=== PATIENT | male | born 1975 | race American Indian/Alaskan Native ===

== ENCOUNTER 2019-09-09 22:57 | Inpatient (IN) | payer OTHER ==
[2019-09-10] MEDS ORDERED: ONDANSETRON 4 MG/2 ML INJ ONE (02:43)
[2019-09-10] MEDS ORDERED: SODIUM CHLORIDE 0.9% 1000 ML 1,000 ML IV ONE (04:05)
[2019-09-10] MEDS ORDERED: ACETAMINOPHEN 500 MG TAB PO ONE (04:05)
[2019-09-10] MEDS ORDERED: dexAMETHasone 20 MG/5 ML VIAL IV ONE (04:06)
--- NOTE | 2019-09-10 04:18 | XRay Report ---
CHEST 2 VIEWS INDICATION / CLINICAL INFORMATION: fever. COMPARISON: None available. FINDINGS: SUPPORT DEVICES: None. HEART / MEDIASTINUM: No significant abnormality. LUNGS / PLEURA: Moderate bilateral streaky parenchymal disease No pneumothorax. ADDITIONAL FINDINGS: No significant additional findings. IMPRESSION: 1. Probable bilateral COVID bronchopneumonia Signer Name: Tahir Massey MD Signed: 09/10/2019 4:14 AM Workstation Name: [email or web address]
[2019-09-10 04:55] LABS: Basophils % (Auto) 0.5 % (0.0-1.8); Eosinophils % (Auto) 0.1 % (0.0-4.3); Hematocrit 47.8 % (35.5-45.6); Hemoglobin 16.1 gm/dl (11.8-15.2); Lymphocytes # (Auto) 2.7 K/mm3 (1.2-5.4); Lymphocytes % (Auto) 42.4 % (13.4-35.0); Mean Corpuscular HGB Conc 34 % (32-34); Mean Corpuscular Volume 96 fl (84-94); Monocytes # (Auto) 0.3 K/mm3 (0.0-0.8); Monocytes % (Auto) 5.2 % (0.0-7.3); Platelet Count 214 K/mm3 (140-440); Red Blood Count 4.98 M/mm3 (3.65-5.03); Red Cell Distribution Width 13.7 % (13.2-15.2)
[2019-09-10 05:03] LABS: Alanine Aminotransferase 80 units/L (7-56); Albumin 4.2 g/dL (3.9-5); BUN/Creatinine Ratio 18; Blood Urea Nitrogen 14 mg/dL (9-20); Calcium 8.6 mg/dL (8.4-10.2); Hemolysis Index 102
[2019-09-10] MEDS ORDERED: IPRATROPIUM/ALBUTEROL SULFATE 3 ML AMPUL.NEB IH ONE (05:38)
[2019-09-10] MEDS ORDERED: cefTRIAXone/NS 1 GM/50 ML 1 GM/50 ML BAG IV ONE ×2 (05:39→10:00)
[2019-09-10] MEDS ORDERED: AZITHROMYCIN 500 MG in SODIUM CHLORIDE 0.9% 250ML 250 ML IV ONE (06:00)
--- NOTE | 2019-09-10 07:51 | Emergency Department Report ---
ED General Adult HPI - General Chief complaint: Fever Stated complaint: FEVER,HEADACHE,CHILLS Source: patient Mode of arrival: Ambulatory Limitations: No Limitations - History of Present Illness Initial comments: Patient is a 44-year-old male with no past medical history who presents to the ED with complaint of acute onset persistent shortness of breath, persistent dry cough, diffuse body aches and pains, generalized weakness, fatigue, diaphoresis and subjective fever and chills lack of appetite for the last 1 week, worse in the last 2 days. Patient states that he has been taking [id number] Tylenol for fever but that the fever has been persistent and intermittent. Patient states that no one else at home is had similar symptoms. Patient denies dizziness, syncope, chest pain, abdominal pain, nausea, vomiting, sore throat, syncope, dysuria, testicular pain, hematuria or change in vision and palpitations. MD Complaint: dyspnea, cough, fever and chills; weakness -: Sudden, week(s) Location: chest Radiation: non-radiation Severity scale (0 -10): 6 Quality: aching, sharp Consistency: constant Improves with: none Worsens with: none Associated Symptoms: denies other symptoms, cough, diaphoresis, fever/chills, headaches, loss of appetite, malaise, shortness of breath. denies: confusion, chest pain, nausea/vomiting, rash, seizure, syncope, weakness, other Treatments Prior to Arrival: none - Related Data Allergies Allergy/AdvReac Type Severity Reaction Status Date / Time No Known Allergies Allergy Verified 09/09/19 23:49 ED Review of Systems ROS: Stated complaint: FEVER,HEADACHE,CHILLS Other details as noted in HPI Constitutional: chills, fever, malaise, weakness Eyes: denies: eye pain, eye discharge, vision change ENT: congestion. denies: ear pain, throat pain Respiratory: cough, shortness of breath, wheezing Cardiovascular: denies: chest pain, palpitations Endocrine: no symptoms reported Gastrointestinal: denies: abdominal pain, nausea, diarrhea Genitourinary: denies: urgency, dysuria Musculoskeletal: arthralgia, myalgia. denies: back pain, joint swelling Skin: denies: rash, lesions Neurological: headache. denies: weakness, paresthesias Psychiatric: denies: anxiety, depression Hematological/Lymphatic: denies: easy bleeding, easy bruising ED Past Medical Hx - Past Medical History Previous Medical History?: No - Surgical History Past Surgical History?: No ED Physical Exam - General Limitations: No Limitations General appearance: alert, in no apparent distress - Head Head exam: Present: atraumatic, normocephalic, normal inspection - Eye Eye exam: Present: normal appearance, PERRL, EOMI - ENT ENT exam: Present: normal orophraynx, mucous membranes moist, TM's normal bilaterally, normal external ear exam, other (Grossly congested nasal passages) - Neck Neck exam: Present: normal inspection, full ROM - Respiratory Respiratory exam: Present: wheezes (Mild diffuse coarse wheezes throughout). Absent: respiratory distress, rales, rhonchi, chest wall tenderness, decreased breath sounds - Cardiovascular Cardiovascular Exam: Present: normal rhythm, tachycardia, normal heart sounds. Absent: systolic murmur, diastolic murmur, rubs, gallop - GI/Abdominal GI/Abdominal exam: Present: soft, normal bowel sounds. Absent: distended, tenderness, guarding, hyperactive bowel sounds, hypoactive bowel sounds, organomegaly - Extremities Exam Extremities exam: Present: normal inspection, full ROM, normal capillary refill - Back Exam Back exam: Present: normal inspection, full ROM. Absent: tenderness, CVA tenderness (R), muscle spasm, paraspinal tenderness, vertebral tenderness - Neurological Exam Neurological exam: Present: alert, oriented X3, CN II-XII intact, normal gait, reflexes normal - Psychiatric Psychiatric exam: Present: normal affect, normal mood - Skin Skin exam: Present: warm, dry, intact, normal color. Absent: rash ED Course Vital Signs 09/09/19 23:47 Temperature 98.3 F Pulse Rate 109 H Respiratory 16 Rate Blood Pressure 128/79 O2 Sat by Pulse 95 Oximetry ED Medical Decision Making - Lab Data Result diagrams: 09/10/19 04:24 09/10/19 04:24 - Radiology Data Radiology results: report reviewed, image reviewed Findings [facility] [address] [place] [address] XRay Report Signed Patient: ROCÍO CARBAJAL R#: [id number] : 1975 Acct:[id number] Age/Sex: 44 / M ADM Date: 09/09/19 Loc: ED Attending Dr: Ordering Physician: MARTY NAYLOR Date of Service: 09/10/19 Procedure(s): XR chest routine 2V Accession Number(s): [id number] cc: MARTY NAYLOR Fluoro Time In Minutes: CHEST 2 VIEWS INDICATION / CLINICAL INFORMATION: fever. COMPARISON: None available. FINDINGS: SUPPORT DEVICES: None. HEART / MEDIASTINUM: No significant abnormality. LUNGS / PLEURA: Moderate bilateral streaky parenchymal disease No pneumothorax. ADDITIONAL FINDINGS: No significant additional findings. IMPRESSION: 1. Probable bilateral COVID bronchopneumonia Signer Name: Tahir Massey MD Signed: 09/10/2019 4:14 AM Workstation Name: [id number] Transcribed By: TL Dictated By: Tahir Massey MD Electronically Authenticated By: Tahir Massey MD Signed Date/Time: 09/10/19413 DD/ 2 TD/TT: - Medical Decision Making This is a 44-year-old male with no past medical history who presents to the ED with complaint of acute onset persistent shortness of breath, persistent dry cough, diffuse body aches and pains, generalized weakness, fatigue, diaphoresis and subjective fever and chills lack of appetite for the last 1 week, worse in the last 2 days. Patient states that he has been taking [id number] Tylenol for fever but that the fever has been persistent and intermittent. Patient states that no one else at home is had similar symptoms. In the ED, patient is alert and oriented x3 and is not in distress but tachycardic in triage and slightly hypoxic when ambulating in the ED with oxygen saturation of 92% in room air. Chest x-ray showed moderate bilateral streaky parenchymal disease No pneumothorax. The initial lab test results showed AST of 72, ALT of 80 and hyperglycemia of 156 mg/dL. The rest of the lab test results were unremarkable. When ambulated in the ED, patient's oxygen saturation dropped to 92% on room air. Patient's case was discussed with the ED attending physician Dr. Leal who agreed with the plan of care to admit the patient to the hospital with hospitalist physician. The COVID-19 order set was activated and the patient treated accordingly with Decadron, DuoNeb, Tylenol, normal saline IV bolus and started on empiric antibiotics Rocephin 1 g IV x1 and azithromycin 500 mg IV x1. Patient's case was discussed with the hospitalist physician on-call Dr. Mo who took the admission to past hour to the day shift hospitalist physician at shift change at 0700 hrs. - Differential Diagnosis Pneumonia; Covid-19; Hypoxia; CAD; Bronchitis; PE Critical care attestation.: If time is entered above; I have spent that time in minutes in the direct care of this critically ill patient, excluding procedure time. ED Disposition Clinical Impression: Shortness of breath, Hypoxia, Suspected COVID-19 virus infection Pneumonia of both lower lobes Qualifiers: Pneumonia type: due to unspecified organism Qualified Code(s): J18.9 - Pneumonia, unspecified organism Disposition: - OP ADMIT IP TO THIS HOSP Is pt being admited?: Yes Does the pt Need Aspirin: Yes Condition: Stable Instructions: Bacterial Pneumonia (ED) Referrals: PRIMARY CARE, [Primary Care Provider] - 3-5 Days Time of Disposition: 06:50
[2019-09-10] MEDS ORDERED: ASPIRIN 81 MG TAB CHEW PO ONE (07:55)
[2019-09-10] MEDS ORDERED: ONDANSETRON 4 MG/2 ML INJ IV PRN (09:01)
[2019-09-10] MEDS ORDERED: AZITHROMYCIN 500 MG in SODIUM CHLORIDE 0.9% 250ML 250 ML IV SCH (10:00)
[2019-09-10] MEDS ORDERED: AZITHROMYCIN 250 MG TAB PO SCH (10:00)
--- NOTE | 2019-09-10 11:11 | History and Physical Report ---
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 He states the fever is mostly only in the morning. He is not in any acute distress. Chest x-ray revealed bilateral streaky parenchymal infiltrates . He was also h ypoxic with O2 sat on room air 88%. Patient is being admitted for suspected COVID 19 pneumonia Past History Past Medical History: No medical history Medications and Allergies Allergies Allergy/AdvReac Type Severity Reaction Status Date / Time No Known Allergies Allergy Verified 09/09/19 23:49 Active Meds: Active Medications Acetaminophen (Tylenol) 650 mg PO Q4H PRN PRN Reason: Pain MILD(1-3)/Fever >100.5/BOBBY Azithromycin (Zithromax) 500 mg PO QDAY DONN Dexamethasone (Decadron) 6 mg PO DAILY [facility] Stop: 09/20/19 10:01 Sodium Chloride (Nacl 0.9% 1000 Ml) 1,000 mls @ 75 mls/hr IV DIRECT DONN Ceftriaxone Sodium (Rocephin/Ns 2 Gm/100 Ml) 2 gm in 100 mls @ 200 mls/hr IV Q 24HR DONN; Protocol Ondansetron HCl (Zofran) 4 mg IV Q8H PRN PRN Reason: Nausea And Vomiting Sodium Chloride (Sodium Chloride Flush Syringe 10 Ml) 10 ml IV BID [facility] Sodium Chloride (Sodium Chloride Flush Syringe 10 Ml) 10 ml IV PRN PRN PRN Reason: LINE FLUSH Review of Systems Constitutional: fever, fatigue, no weight loss, no chills Ears, nose, mouth and throat: no ear pain, no nasal congestion, no sore throat, no headache, no vertigo Cardiovascular: shortness of breath, dyspnea on exertion, no chest pain, no palpitations, no syncope Respiratory: cough, shortness of breath, no hemoptysis Gastrointestinal: no abdominal pain, no nausea, no vomiting, no diarrhea, no melena Genitourinary Male: no dysuria Rectal: no pain Musculoskeletal: no neck stiffness, no neck pain Integumentary: no rash Neurological: no head injury, no vertigo Psychiatric: no anxiety, no depression Exam - Constitutional Vitals: Temp Pulse Resp BP Pulse Ox 98.2 F 84 18 133/81 97 09/10/19 09:42 09/10/19 09:42 09/10/19 09:42 09/10/19 10:00 09/10/19 10:00 General appearance: Present: no acute distress, well-nourished - EENT Eyes: Present: PERRL, EOM intact ENT: hearing intact, clear oral mucosa - Neck Neck: Present: supple, normal ROM - Respiratory Respiratory effort: normal Respiratory: bilateral: CTA - Cardiovascular Rhythm: regular Heart Sounds: Present: S1 & S2 - Extremities Extremities: No edema - Abdominal General gastrointestinal: Present: soft, non-tender. Absent: hepatomegaly, spl enomegaly Male genitourinary: Present: deferred - Rectal Rectal Exam: deferred - Integumentary Integumentary: Present: clear - Musculoskeletal Musculoskeletal: strength equal bilaterally - Psychiatric Psychiatric: appropriate mood/affect - Neurologic Neurologic: no focal deficits Results - Labs CBC & Chem 7: 09/10/19 04:24 09/10/19 04:24 Labs: Abnormal lab results 09/10/19 09/10/19 Range/Units 04:24 04:24 Hgb 16.1 H (11.8-15.2) gm/dl Hct 47.8 H (35.5-45.6) % MCV 96 H (84-94) fl Lymph % (Auto) 42.4 H (13.4-35.0) % Glucose 156 H (75-100) mg/dL AST 72 H (5-40) units/L ALT 80 H (7-56) units/L Total Protein 8.3 H (6.3-8.2) g/dL Assessment and Plan - Patient Problems (1) Pneumonia of both lower lobes Current Visit: Yes Status: Acute Qualifiers: Pneumonia type: due to unspecified organism Qualified Code(s): J18.9 - Pneumonia, unspecified organism Plan to address problem: Patient is being admitted for bilateral lung infiltrates and hypoxia with suspected infection Pneumonia pathway initiated Continue IV antibiotics with Rocephin and azithromycin COVID-19 tests results pending (2) Hyperglycemia Current Visit: Yes Status: Acute Plan to address problem: Patient denies history of diabetes Check A1c (3) Elevated LFTs Current Visit: Yes Status: Acute Plan to address problem: Patient denies alcohol abuse Likely inflammatory markers secondary to COVID-19 Monitor LFTs His abdomen is benign (4) Hypoxia Current Visit: Yes Status: Acute Plan to address problem: Secondary to pneumonia Continue oxygen via nasal cannula at 2 L Likely satting 95% (5) Suspected COVID-19 virus infection Current Visit: Yes Status: Acute Plan to address problem: COVID-19 test is pending Inflammatory markers including d-dimer, LDH, C-reactive protein and ferritin ordered
[2019-09-10 13:10] LABS: C-Reactive Protein 5.3 mg/dL (0.00-1.30)
[2019-09-10] MEDS ORDERED: REMDESIVIR 200 MG in SODIUM CHLORIDE 0.9% 250ML 250 ML IV ONE (15:48)
[2019-09-10] MEDS: SODIUM CHLORIDE 0.9% 50 ML IV SCH (20:48)
[2019-09-11] MEDS: ACETAMINOPHEN 325 MG TAB PO PRN (05:05)
[2019-09-11 06:30] LABS: Alanine Aminotransferase 64 units/L (7-56); Albumin 3.9 g/dL (3.9-5); BUN/Creatinine Ratio 18; Blood Urea Nitrogen 14 mg/dL (9-20); Calcium 8.9 mg/dL (8.4-10.2); Hemolysis Index 6
[2019-09-11] MEDS: SODIUM CHLORIDE 0.9% 1000 ML 1,000 ML IV SCH ×2 (07:29→22:24)
[2019-09-11] MEDS ORDERED: cefTRIAXone/NS 2 GM/100 ML 2 GM/100 ML BAG IV SCH (10:00)
[2019-09-11] MEDS: DEXAMETHASONE 4 MG TAB PO SCH (10:03)
--- NOTE | 2019-09-11 10:27 | Progress Note ---
Assessment and Plan - Patient Problems (1) Pneumonia of both lower lobes Current Visit: Yes Status: Acute Qualifiers: Pneumonia type: due to unspecified organism Qualified Code(s): J18.9 - Pneumonia, unspecified organism (2) Hyperglycemia Current Visit: Yes Status: Acute (3) Elevated LFTs Current Visit: Yes Status: Acute (4) Hypoxia Current Visit: Yes Status: Acute (5) Suspected COVID-19 virus infection Current Visit: Yes Status: Acute Subjective Date of service: 09/11/19 Interval history: Assessment and Plan - Patient Problems (1) Pneumonia of both lower lobes 2/2 covid 19 infection Current Visit: Yes Status: Acute Qualifiers: Pneumonia type: due to unspecified organism Qualified Code(s): J18.9 - Pneu monia, unspecified organism Plan to address problem: Patient is being admitted for bilateral lung infiltrates and hypoxia with suspected infection COVID 19 test is positive Procalcitonin is in the normal range We will discontinue IV antibiotics Started on Decadron and remdesivir Feels better Still has dry cough and feels short of breath with effort. Denies fever Lab results reviewed (2) Hyperglycemia Current Visit: Yes Status: Acute Plan to address problem: Patient denies history of diabetes A1c 7.4 Initiate insulin sliding scale coverage (3) Elevated LFTs Current Visit: Yes Status: Acute Plan to address problem: Patient denies alcohol abuse Likely inflammatory markers secondary to COVID-19 Improving Monitor LFTs intermittently His abdomen is benign (4) Hypoxia Current Visit: Yes Status: Acute Plan to address problem: Secondary to pneumonia Continue oxygen via nasal cannula at 2 L Oxygen saturation 95% but last oxygen saturation this morning dropped to 89 Discussed with RN if Repeat O2 sat is less than 93% we will increase the oxygen to 4 L (5) Suspected COVID-19 virus infection Current Visit: Yes Status: Acute Plan to address problem: COVID-19 test is Inflammatory markers including d-dimer, LDH, C-reactive protein and ferritin reviewed HPI: Patient is alert and oriented and offers no specific complaints except mild dry cough and shortness of breath with effort He states the fevers have improved since he came here 09/10 Doing well Feels better and has mild shortness of breath with effort Also complains of mild dry cough Lab results reviewed Medications adjusted Objective - Constitutional Vitals: Vital Signs - 12hr 09/10/19 09/10/19 09/11/19 23:00 23:53 00:00 Temperature 98.4 F Pulse Rate 105 H Respiratory 16 Rate Blood Pressure 159/85 159/85 Blood Pressure 112/76 [Right] O2 Sat by Pulse 94 95 95 Oximetry 09/11/19 09/11/19 09/11/19 01:00 02:00 03:00 Temperature 99.1 F Pulse Rate 99 H Respiratory 18 Rate Blood Pressure 142/75 158/80 175/126 Blood Pressure 152/78 [Right] O2 Sat by Pulse 93 95 93 Oximetry 09/11/19 09/11/19 03:10 05:55 Temperature 97.8 F Pulse Rate 91 H Respiratory 20 Rate Blood Pressure 175/126 144/94 Blood Pressure [Right] O2 Sat by Pulse 93 89 Oximetry General appearance: Present: no acute distress - EENT Eyes: PERRL, EOM intact ENT: hearing intact, clear oral mucosa - Neck Neck: supple, normal ROM - Respiratory Respiratory effort: normal Respiratory: bilateral: CTA, negative: rales, rhonchi - Cardiovascular Rhythm: regular Heart Sounds: Present: S1 & S2 Extremities: No edema - Gastrointestinal General gastrointestinal: Present: soft, non-tender Rectal Exam: deferred - Genitourinary Male genitourinary: deferred - Integumentary Integumentary: clear - Musculoskeletal Musculoskeletal: strength equal bilaterally - Neurologic Neurologic: no focal deficits - Psychiatric Psychiatric: appropriate mood/affect - Labs CBC & Chem 7: 09/10/19 04:24 09/11/19 05:16 Labs: Abnormal lab results 09/10/19 09/10/19 09/10/19 Range/Units 09:00 09:00 09:00 D-Dimer 241.42 H (0-234) ng/mlDDU Glucose (75-100) mg/dL Hemoglobin A1c (4-6) % Ferritin 822.6 H (13.0-400.0) ng/mL AST (5-40) units/L ALT (7-56) units/L Lactate Dehydrogenase 298 H (91-180) units/L C-Reactive Protein 5.30 H (0.00-1.30) mg/dL Coronavirus (PCR) (Negative) 09/10/19 09/11/19 09/11/19 Range/Units Unknown 05:16 07:48 D-Dimer (0-234) ng/mlDDU Glucose 219 H (75-100) mg/dL Hemoglobin A1c 7.4 H (4-6) % Ferritin (13.0-400.0) ng/mL AST 41 H (5-40) units/L ALT 64 H (7-56) units/L Lactate Dehydrogenase (91-180) units/L C-Reactive Protein (0.00-1.30) mg/dL Coronavirus (PCR) Positive A (Negative)
[2019-09-11] MEDS: INSULIN LISPRO 100 UNIT/ML SUB-Q SCH ×3 (11:30→22:23)
[2019-09-11] MEDS: REMDESIVIR 100 MG in SODIUM CHLORIDE 0.9% 250ML 250 ML IV SCH (22:22)
[2019-09-11] MEDS: SODIUM CHLORIDE 0.9% 50 ML IV SCH (22:22)
[2019-09-12] MEDS: SODIUM CHLORIDE 0.9% 1000 ML 1,000 ML IV SCH (04:23)
[2019-09-12] MEDS: INSULIN LISPRO 100 UNIT/ML SUB-Q SCH ×4 (09:04→22:56)
[2019-09-12] MEDS: DEXAMETHASONE 4 MG TAB PO SCH (09:05)
--- NOTE | 2019-09-12 09:43 | Progress Note ---
Assessment and Plan - Patient Problems (1) Pneumonia of both lower lobes Current Visit: Yes Status: Acute Qualifiers: Pneumonia type: due to unspecified organism Qualified Code(s): J18.9 - Pneumonia, unspecified organism (2) Hyperglycemia Current Visit: Yes Status: Acute (3) Elevated LFTs Current Visit: Yes Status: Acute (4) Hypoxia Current Visit: Yes Status: Acute (5) Suspected COVID-19 virus infection Current Visit: Yes Status: Acute Subjective Date of service: 09/12/19 Interval history: Assessment and Plan - Patient Problems (1) Pneumonia of both lower lobes 2/2 covid 19 infection Current Visit: Yes Status: Acute Qualifiers: Pneumonia type: due to unspecified organism Qualified Code(s): J18.9 - Pneu monia, unspecified organism Plan to address problem: Patient is being admitted for bilateral lung infiltrates and hypoxia 2/2 covid 19 infection COVID 19 test is positive Procalcitonin is in the normal range IV antibiotics stopped cont. Decadron day 3 Continue remdesivir -day 2, stop date 09/14 Feels better Still has dry cough and feels short of breath with effort. Denies fever Lab results reviewed All inflammatory markers are improving LFTs are close to normal LDH down to 210, ferritin down to 660 and d-dimer is (2) Hyperglycemia Current Visit: Yes Status: Acute Plan to address problem: Patient denies history of diabetes A1c 7.4 Continue insulin sliding scale coverage (3) Elevated LFTs Current Visit: Yes Status: Acute Plan to address problem: Patient denies alcohol abuse Likely inflammatory markers secondary to COVID-19 Improving-now close to normal No need for further follow-up of LFTs (4) Hypoxia Current Visit: Yes Status: Acute Plan to address problem: Secondary to pneumonia Patient is on room air today Oxygen saturation 95% Discussed with RN (5) COVID-19 virus infection Current Visit: Yes Status: Acute Plan to address problem: COVID-19 test is positive Inflammatory markers including d-dimer, LDH, C-reactive protein and ferritin reviewed HPI: Patient is alert and oriented and offers no specific complaints except mild dry cough and shortness of breath with effort He states the fevers have improved since he came here 09/10 Doing well Feels better and has mild shortness of breath with effort Also complains of mild dry cough Lab results reviewed Medications adjusted 09/11 Doing well Denies shortness of breath Still has dry cough Denies fever or chills Lab results reviewed Objective - Constitutional Vitals: Vital Signs - 12hr 09/12/19 09/12/19 02:00 03:41 Temperature 97.8 F Pulse Rate 68 Pulse Rate [ 74 Right Brachial] Respiratory 18 18 Rate Blood Pressure 132/81 O2 Sat by Pulse 96 97 Oximetry General appearance: Present: no acute distress, mild distress - EENT Eyes: PERRL, EOM intact ENT: hearing intact, clear oral mucosa - Neck Neck: supple, normal ROM - Respiratory Respiratory effort: normal Respiratory: bilateral: CTA - Cardiovascular Rhythm: regular Heart Sounds: Present: S1 & S2 Extremities: No edema - Gastrointestinal General gastrointestinal: Present: soft, non-tender - Integumentary Integumentary: clear - Musculoskeletal Musculoskeletal: strength equal bilaterally - Labs CBC & Chem 7: 09/10/19 04:24 09/11/19 05:16 Labs: Abnormal lab results 09/11/19 09/11/19 09/12/19 Range/Units 17:25 22:29 05:55 POC Glucose 278 H 266 H (70-105) Ferritin 661.6 H (13.0-400.0) ng/mL Lactate Dehydrogenase (91-180) units/L 09/12/19 09/12/19 Range/Units 05:55 09:05 POC Glucose 202 H (70-105) Ferritin (13.0-400.0) ng/mL Lactate Dehydrogenase 210 H (91-180) units/L
[2019-09-12] MEDS: REMDESIVIR 100 MG in SODIUM CHLORIDE 0.9% 250ML 250 ML IV SCH (21:28)
[2019-09-12] MEDS: SODIUM CHLORIDE 0.9% 50 ML IV SCH (22:03)
[2019-09-13] MEDS: SODIUM CHLORIDE 0.9% 1000 ML 1,000 ML IV SCH ×2 (06:19→20:02)
--- NOTE | 2019-09-13 07:39 | Progress Note ---
Assessment and Plan Assessment and plan: --COVID-19 bilateral pneumonia Current Visit: Yes Status: Acute COVID 19 test is positive Procalcitonin is in the normal range,IV antibiotics stopped cont. Decadron day 5 and remdesivir -day 4 Has mild dry cough and feels short of breath with effort. 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 --DVT prophylaxis: Lovenox Monitor closely and adjust management as needed Plan of care reviewed with the patient and his nurse 09/10:Doing well, mild dry cough 09/11:Denies shortness of breath, has dry cough On steroid and Remdesivir 09/13/19: Oxygen evaluation O2 sats more than 95% No indication for home oxygen at this point Possible discharge in 1 to 2 days if stable History Interval history: COVID positive patient ; I have seen and examined the patient at bedside this morning Isolation precautions, PPE protocols observed Patient feels slightly better, afebrile Vital signs reviewed Hospitalist Physical - Constitutional Vitals: Temp Pulse Resp BP Pulse Ox 97.8 F 58 L 20 131/81 95 09/13/19 04:00 09/13/19 04:00 09/13/19 04:00 09/13/19 04:00 09/13/19 04:00 General appearance: Present: no acute distress, mild distress, obese - EENT Eyes: Present: PERRL, EOM intact - Neck Neck: Present: supple, normal ROM - Respiratory Respiratory effort: normal Respiratory: bilateral: diminished, rhonchi, negative: rales, wheezing - Cardiovascular Rhythm: regular Heart Sounds: Present: S1 & S2 - Extremities Extremities: no ischemia, No edema - Abdominal General gastrointestinal: soft, non-tender, non-distended, normal bowel sounds - Integumentary Integumentary: Present: clear, warm - Psychiatric Psychiatric: appropriate mood/affect, cooperative - Neurologic Neurologic: CNII-XII intact, moves all extremities Results - Labs CBC & Chem 7: 09/10/19 04:24 09/11/19 05:16 Labs: Laboratory Last Values WBC 6.4 K/mm3 (4.5-11.0) 09/10/19 04:24 RBC 4.98 M/mm3 (3.65-5.03) 09/10/19 04:24 Hgb 16.1 gm/dl (11.8-15.2) H 09/10/19 04:24 Hct 47.8 % (35.5-45.6) H 09/10/19 04:24 MCV 96 fl (84-94) H 09/10/19 04:24 MCH 32 pg (28-32) 09/10/19 04:24 MCHC 34 % (32-34) 09/10/19 04:24 RDW 13.7 % (13.2-15.2) 09/10/19 04:24 Plt Count 214 K/mm3 (140-440) 09/10/19 04:24 Lymph % (Auto) 42.4 % (13.4-35.0) H 09/10/19 04:24 [place] % (Auto) 5.2 % (0.0-7.3) 09/10/19 04:24 Eos % (Auto) 0.1 % (0.0-4.3) 09/10/19 04:24 Baso % (Auto) 0.5 % (0.0-1.8) 09/10/19 04:24 Lymph # 2.7 K/mm3 (1.2-5.4) 09/10/19 04:24 [place] # 0.3 K/mm3 (0.0-0.8) 09/10/19 04:24 Eos # 0.0 K/mm3 (0.0-0.4) 09/10/19 04:24 Baso # 0.0 K/mm3 (0.0-0.1) 09/10/19 04:24 Seg Neutrophils % 51.8 % (40.0-70.0) 09/10/19 04:24 Seg Neutrophils # 3.3 K/mm3 (1.8-7.7) 09/10/19 04:24 D-Dimer 182.03 ng/mlDDU (0-234) 09/12/19 05:55 Sodium 141 mmol/L (137-145) 09/11/19 05:16 Potassium 4.1 mmol/L (3.6-5.0) 09/11/19 05:16 Chloride 104.6 mmol/L (98-107) 09/11/19 05:16 Carbon Dioxide 22 mmol/L (22-30) 09/11/19 05:16 Anion Gap 19 mmol/L 09/11/19 05:16 BUN 14 mg/dL (9-20) 09/11/19 05:16 Creatinine 0.8 mg/dL (0.8-1.5) 09/11/19 05:16 Estimated GFR > 60 ml/min 09/11/19 05:16 BUN/Creatinine Ratio 18 % 09/11/19 05:16 Glucose 219 mg/dL (75-100) H 09/11/19 05:16 POC Glucose 261 (70-105) H 09/12/19 22:49 Hemoglobin A1c 7.4 % (4-6) H 09/11/19 07:48 Calcium 8.9 mg/dL (8.4-10.2) 09/11/19 05:16 Ferritin 661.6 ng/mL (13.0-400.0) H 09/12/19 05:55 Total Bilirubin 0.50 mg/dL (0.1-1.2) 09/11/19 05:16 AST 41 units/L (5-40) H 09/11/19 05:16 ALT 64 units/L (7-56) H 09/11/19 05:16 Alkaline Phosphatase 98 units/L (35-129) 09/11/19 05:16 Lactate Dehydrogenase 210 units/L (91-180) H 09/12/19 05:55 C-Reactive Protein 5.30 mg/dL (0.00-1.30) H 09/10/19 09:00 Total Protein 7.9 g/dL (6.3-8.2) 09/11/19 05:16 Albumin 3.9 g/dL (3.9-5) 09/11/19 05:16 Albumin/Globulin Ratio 1.0 % 09/11/19 05:16 Procalcitonin 0.23 ng/mL (<0.15) 09/10/19 07:10 Coronavirus (PCR) Positive (Negative) A 09/10/19 Unknown Microbiology: Microbiology 09/10/19 07:10 Peripheral/Venous Blood Culture - Preliminary NO GROWTH AFTER 48 HOURS 09/10/19 07:10 Peripheral/Venous Blood Culture - Preliminary NO GROWTH AFTER 48 HOURS Duggan/IV: Voiding Method Urinal IV Catheter Type [Right Peripheral IV Antecubital] Active Medications - Current Medications Current Medications: Generic Name Dose Route Start Last Admin Trade Name Freq PRN Reason Stop Dose Admin Acetaminophen 650 mg 09/10/19 09:01 09/11/19 05:05 Tylenol PO 650 mg Q4H PRN Administration Pain MILD(1-3)/Fever >100.5/BOBBY Dexamethasone 6 mg 09/11/19 10:00 09/12/19 09:05 Decadron PO 09/20/19 10:01 6 mg DAILY DONN Administration Sodium Chloride 1,000 mls @ 75 mls/hr 09/10/19 09:15 09/13/19 06:19 Nacl 0.9% 1000 Ml IV 75 mls/hr DIRECT DONN Administration REMDESIVIR 100 mg/ Sodium 250 mls @ 500 mls/hr 09/11/19 21:00 09/12/19 21:28 Chloride IV 09/14/19 21:29 500 mls/hr Q24HR@2100 DONN Administration Sodium Chloride 50 mls @ 200 mls/hr 09/10/19 16:00 09/12/19 22:03 Nacl 0.9% IV 09/14/19 21:14 200 mls/hr 2100 DONN Administration Insulin Human Lispro 0 unit 09/11/19 11:30 09/12/19 22:56 Humalog SUB-Q 3 unit ACHS DONN Administration Protocol Ondansetron HCl 4 mg 09/10/19 09:01 Zofran IV Q8H PRN Nausea And Vomiting Sodium Chloride 10 ml 09/10/19 10:00 09/12/19 22:04 Sodium Chloride Flush Syringe 10 Ml IV 10 ml BID DONN Administration Sodium Chloride 10 ml 09/10/19 09:01 Sodium Chloride Flush Syringe 10 Ml IV PRN PRN LINE FLUSH
[2019-09-13] MEDS: DEXAMETHASONE 4 MG TAB PO SCH (09:11)
[2019-09-13] MEDS: INSULIN LISPRO 100 UNIT/ML SUB-Q SCH ×4 (09:12→22:45)
[2019-09-13] MEDS: ACETAMINOPHEN 325 MG TAB PO PRN (21:00)
[2019-09-13] MEDS: REMDESIVIR 100 MG in SODIUM CHLORIDE 0.9% 250ML 250 ML IV SCH (21:50)
[2019-09-13] MEDS: SODIUM CHLORIDE 0.9% 50 ML IV SCH (22:58)
[2019-09-14] MEDS: INSULIN LISPRO 100 UNIT/ML SUB-Q SCH ×4 (08:45→23:04)
[2019-09-14] MEDS: DEXAMETHASONE 4 MG TAB PO SCH (09:29)
--- NOTE | 2019-09-14 11:53 | Progress Note ---
Assessment and Plan Assessment and plan: --COVID-19 bilateral pneumonia Current Visit: Yes Status: Acute COVID 19 test is positive Procalcitonin is in the normal range,IV antibiotics stopped cont. Decadron day 5 and remdesivir -day 4 Has mild dry cough and feels short of breath with effort. Inflammatory markers are improving LFTs are close to normal LDH down to 210, ferritin down to 660 and d-dimer is -- Hyperglycemia Current Visit: Yes Status: Acute Accu-Chek sliding scale coverage A1c 7.4, ADA diet Patient is on steroids, patient will check with PMD further evaluation management of hyperglycemia as outpatient -- Elevated LFTs Current Visit: Yes Status: Acute Trending down --Hypoxia; significantly improved Current Visit: Yes Status: Acute Secondary to pneumonia, received Remdesivir Room air and ambulatory O2 sats more than 95% Supportive care --DVT prophylaxis: Lovenox Monitor closely and adjust management as needed Plan of care reviewed with the patient and his nurse 09/10:Doing well, mild dry cough 09/11:Denies shortness of breath, has dry cough On steroid and Remdesivir 09/13/19: Oxygen evaluation O2 sats more than 95% No indication for home oxygen at this point 09/14/19; last dose of Remdesivir tonight, possible DC tomorrow O2 sats resting room air 96%, ambulatory room air 94%. No indication for home oxygen Possible discharge in 1 to 2 days if stable History Interval history: Patient feels slightly better, Resting room air and ambulatory room air O2 sats are more than 94% Patient is receiving rendicivir last dose tonight Patient denies chest pain or shortness of breath Vital signs reviewed Hospitalist Physical - Constitutional Vitals: Temp Pulse Resp BP Pulse Ox 97.7 F 57 L 18 138/91 96 09/14/19 05:17 09/14/19 05:17 09/14/19 07:30 09/14/19 05:17 09/14/19 05:17 General appearance: Present: no acute distress, mild distress, obese - EENT Eyes: Present: PERRL, EOM intact - Neck Neck: Present: supple, normal ROM - Respiratory Respiratory effort: normal Respiratory: bilateral: diminished, negative: rales, rhonchi, wheezing - Cardiovascular Rhythm: regular Heart Sounds: Present: S1 & S2 - Extremities Extremities: no ischemia, No edema - Abdominal General gastrointestinal: soft, non-tender, non-distended, normal bowel sounds - Integumentary Integumentary: Present: clear, warm - Psychiatric Psychiatric: appropriate mood/affect, cooperative - Neurologic Neurologic: CNII-XII intact, moves all extremities Results - Labs CBC & Chem 7: 09/10/19 04:24 09/11/19 05:16 Labs: Laboratory Last Values WBC 6.4 K/mm3 (4.5-11.0) 09/10/19 04:24 RBC 4.98 M/mm3 (3.65-5.03) 09/10/19 04:24 Hgb 16.1 gm/dl (11.8-15.2) H 09/10/19 04:24 Hct 47.8 % (35.5-45.6) H 09/10/19 04:24 MCV 96 fl (84-94) H 09/10/19 04:24 MCH 32 pg (28-32) 09/10/19 04:24 MCHC 34 % (32-34) 09/10/19 04:24 RDW 13.7 % (13.2-15.2) 09/10/19 04:24 Plt Count 214 K/mm3 (140-440) 09/10/19 04:24 Lymph % (Auto) 42.4 % (13.4-35.0) H 09/10/19 04:24 [place] % (Auto) 5.2 % (0.0-7.3) 09/10/19 04:24 Eos % (Auto) 0.1 % (0.0-4.3) 09/10/19 04:24 Baso % (Auto) 0.5 % (0.0-1.8) 09/10/19 04:24 Lymph # 2.7 K/mm3 (1.2-5.4) 09/10/19 04:24 [place] # 0.3 K/mm3 (0.0-0.8) 09/10/19 04:24 Eos # 0.0 K/mm3 (0.0-0.4) 09/10/19 04:24 Baso # 0.0 K/mm3 (0.0-0.1) 09/10/19 04:24 Seg Neutrophils % 51.8 % (40.0-70.0) 09/10/19 04:24 Seg Neutrophils # 3.3 K/mm3 (1.8-7.7) 09/10/19 04:24 D-Dimer 182.03 ng/mlDDU (0-234) 09/12/19 05:55 Sodium 141 mmol/L (137-145) 09/11/19 05:16 Potassium 4.1 mmol/L (3.6-5.0) 09/11/19 05:16 Chloride 104.6 mmol/L (98-107) 09/11/19 05:16 Carbon Dioxide 22 mmol/L (22-30) 09/11/19 05:16 Anion Gap 19 mmol/L 09/11/19 05:16 BUN 14 mg/dL (9-20) 09/11/19 05:16 Creatinine 0.8 mg/dL (0.8-1.5) 09/11/19 05:16 Estimated GFR > 60 ml/min 09/11/19 05:16 BUN/Creatinine Ratio 18 % 09/11/19 05:16 Glucose 219 mg/dL (75-100) H 09/11/19 05:16 POC Glucose 135 (70-105) H 09/14/19 07:56 Hemoglobin A1c 7.4 % (4-6) H 09/11/19 07:48 Calcium 8.9 mg/dL (8.4-10.2) 09/11/19 05:16 Ferritin 661.6 ng/mL (13.0-400.0) H 09/12/19 05:55 Total Bilirubin 0.50 mg/dL (0.1-1.2) 09/11/19 05:16 AST 41 units/L (5-40) H 09/11/19 05:16 ALT 64 units/L (7-56) H 09/11/19 05:16 Alkaline Phosphatase 98 units/L (35-129) 09/11/19 05:16 Lactate Dehydrogenase 210 units/L (91-180) H 09/12/19 05:55 C-Reactive Protein 5.30 mg/dL (0.00-1.30) H 09/10/19 09:00 Total Protein 7.9 g/dL (6.3-8.2) 09/11/19 05:16 Albumin 3.9 g/dL (3.9-5) 09/11/19 05:16 Albumin/Globulin Ratio 1.0 % 09/11/19 05:16 Procalcitonin 0.23 ng/mL (<0.15) 09/10/19 07:10 Coronavirus (PCR) Positive (Negative) A 09/10/19 Unknown Microbiology: Microbiology 09/10/19 07:10 Peripheral/Venous Blood Culture - Preliminary NO GROWTH AFTER 4 DAYS 09/10/19 07:10 Peripheral/Venous Blood Culture - Preliminary NO GROWTH AFTER 4 DAYS Duggan/IV: Voiding Method Toilet IV Catheter Type [Right Peripheral IV Antecubital] Active Medications - Current Medications Current Medications: Generic Name Dose Route Start Last Admin Trade Name Freq PRN Reason Stop Dose Admin Acetaminophen 650 mg 09/10/19 09:01 09/13/19 21:00 Tylenol PO 650 mg Q4H PRN Administration Pain MILD(1-3)/Fever >100.5/BOBBY Dexamethasone 6 mg 09/11/19 10:00 09/14/19 09:29 Decadron PO 09/20/19 10:01 6 mg DAILY DONN Administration Sodium Chloride 1,000 mls @ 75 mls/hr 09/10/19 09:15 09/13/19 20:02 Nacl 0.9% 1000 Ml IV 75 mls/hr DIRECT DONN Administration REMDESIVIR 100 mg/ Sodium 250 mls @ 500 mls/hr 09/11/19 21:00 09/13/19 21:50 Chloride IV 09/14/19 21:29 500 mls/hr Q24HR@2100 DONN Administration Sodium Chloride 50 mls @ 200 mls/hr 09/10/19 16:00 09/13/19 22:58 Nacl 0.9% IV 09/14/19 21:14 200 mls/hr 2100 DONN Administration Insulin Human Lispro 0 unit 09/11/19 11:30 09/14/19 08:45 Humalog SUB-Q Not Given ACHS DONN Protocol Ondansetron HCl 4 mg 09/10/19 09:01 Zofran IV Q8H PRN Nausea And Vomiting Sodium Chloride 10 ml 09/10/19 10:00 09/14/19 09:30 Sodium Chloride Flush Syringe 10 Ml IV 10 ml BID DONN Administration Sodium Chloride 10 ml 09/10/19 09:01 Sodium Chloride Flush Syringe 10 Ml IV PRN PRN LINE FLUSH
[2019-09-14] MEDS: SODIUM CHLORIDE 0.9% 1000 ML 1,000 ML IV SCH (13:28)
[2019-09-14] MEDS: REMDESIVIR 100 MG in SODIUM CHLORIDE 0.9% 250ML 250 ML IV SCH (21:35)
[2019-09-14] MEDS: SODIUM CHLORIDE 0.9% 50 ML IV SCH (23:00)
[2019-09-15] MEDS: SODIUM CHLORIDE 0.9% 1000 ML 1,000 ML IV SCH (05:10)
[2019-09-15] MEDS: INSULIN LISPRO 100 UNIT/ML SUB-Q SCH ×3 (08:02→17:06)
[2019-09-15] MEDS: DEXAMETHASONE 4 MG TAB PO SCH (09:28)
--- NOTE | 2019-09-15 14:43 | Discharge Summary ---
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 He states the fever is mostly only in the morning. He is not in any acute distress. Chest x-ray revealed bilateral streaky parenchymal infiltrates . He was also hypoxic with O2 sat on room air 88%. Patient is being admitted work-up was consistent with COVID 19 pneumonia, received empiric antibiotics initially, COVID-19 test was positive, inflammatory markers checked and closely monitored which trended down, home oxygen evaluation resting and ambulatory within normal limits Today patient is comfortable no new complaints vital signs stable\ Physical examination is unremarkable All inflammatory markers significantly improved patient received Oxygen, empiric antibiotics later discontinued, Remdesivir Patient's oxygen saturation improved resting room air and ambulatory room air O2 sats are more than 95% at discharge No indication for home oxygen Today patient is comfortable no new complaints vital signs stable Physical examination unremarkable Hemodynamically and clinically stable at discharge Diagnosis/management --COVID-19 bilateral pneumonia Current Visit: Yes Status: Acute Procalcitonin is in the normal range,IV antibiotics stopped patient received,Oxygen, empiric antibiotics later discontinued, Remdesivir Has mild dry cough and feels short of breath with effort. Inflammatory markers are trending down -- Hyperglycemia Current Visit: Yes Status: Acute Accu-Chek sliding scale coverage A1c 7.4, ADA diet Patient is on steroids, patient will check with PMD further evaluation management of hyperglycemia as outpatient -- Elevated LFTs Current Visit: Yes Status: Acute Trending down --Hypoxia; significantly improved Current Visit: Yes Status: Acute Secondary to pneumonia, received Remdesivir Room air and ambulatory O2 sats more than 95% Supportive care --DVT prophylaxis: Lovenox Stable at discharge Disposition: - TO HOME OR SELFCARE Time spent for discharge: 32 min Core Measure Documentation - Palliative Care Palliative Care/ Comfort Measures: Not Applicable - Core Measures Any of the following diagnoses?: none Exam - Constitutional Vitals: Temp Pulse Resp BP Pulse Ox 98.0 F 60 22 137/84 99 09/15/19 11:41 09/15/19 11:41 09/15/19 11:41 09/15/19 11:41 09/15/19 11:41 General appearance: Present: no acute distress, well-nourished - EENT Eyes: Present: PERRL, EOM intact - Neck Neck: Present: supple, normal ROM - Respiratory Respiratory effort: normal Respiratory: bilateral: diminished, negative: rales, rhonchi, wheezing - Cardiovascular Rhythm: regular Heart Sounds: Present: S1 & S2 - Extremities Extremities: no ischemia, No edema - Abdominal General gastrointestinal: Present: soft, non-tender, non-distended, normal bowel sounds - Integumentary Integumentary: Present: clear, warm - Musculoskeletal Musculoskeletal: strength equal bilaterally - Psychiatric Psychiatric: appropriate mood/affect, cooperative - Neurologic Neurologic: moves all extremities Plan Activity: advance as tolerated Diet: diabetic Additional Instructions: If you have worsening symptoms contact MD or go to emergency room. Advised exercise as tolerated and weight reduction. Strongly advised to comply with COVID-19 protocols. Self quarantine, handwashing, mask wearing and other instructions given to you by the discharge nurse. Your oxygen saturation resting room air and ambulatory room air is more than 95% , no need for home oxygen. Patient has high blood glucose levels. Probably secondary to steroid use/possible pre-diabetes. Advised diabetic diet, check with PMD for further evaluation of diabetes and management of your discharge medications dexamethasone is completed Follow up with: PRIMARY CARE, [Primary Care Provider] - 3-5 Days Prescriptions: Dexamethasone 6 mg PO DAILY #5 tablet
[2019-09-15 16:44] VITALS: BP 100/55
== END 2019-09-15 18:35 | disposition home or self-care (01) | DRG 177 ==
LOC: ED 22:57 → 3A 09-10 07:56
PROVIDERS: ADMIT Internal Medicine Geriatric Medicine; ATTEND Internal Medicine
DX: U07.1 COVID-19 (principal); J12.89 Other viral pneumonia; R09.02 Hypoxemia; R73.9 Hyperglycemia, unspecified
CPT/HCPCS: 36415; 71046; 80053; 82728; 82962; 83036; 83520; 83615; 84145; 85025; 85379; 86140; 87040; G0378; J0456; J0696; J1100; J1815; J2405; J7030; J7050; J8540; U0003-CS